=== PATIENT | male | born 1950 | race Caucasian/White ===

== ENCOUNTER 2018-07-31 14:58 | Inpatient (IN) | payer MEDICARE, OTHER ==
[~2018-07-31] VITALS: Ht 188 cm; Wt 90.7 kg
[2018-07-31 15:29] VITALS: BP 149/73; BMI 25.7
--- NOTE | 2018-07-31 16:42 | NUR ---
PATIENT ADMITTED FROM [facility] IN [place]. TRANSPORTED PATIENT BY CAR TO THE [facility]. PATIENT IS ALERT/ORIENT. DIAG: CVA, VALVE REPLACEMENT RIGHT GROIN. PERITONEL DAILYSIS PATIENT. DR KELLER MADE AWARE THAT PATIENT HAS ARRIVED.
[2018-07-31 18:25] VITALS: BP 138/71
[2018-07-31 19:00] VITALS: BP 134/67
--- NOTE | 2018-07-31 23:27 | NUR ---
RESTING IN BED. HAD PD DONE. TOLERATED WELL. NO DISTRESS NOTED.
[2018-08-01 01:44] VITALS: BP 153/78
--- NOTE | 2018-08-01 04:30 | NUR ---
RESTING IN BED WITH NO DISTRESS NOTED. PD CATH IN PLACE.
[2018-08-01 06:26] VITALS: BP 129/72
[2018-08-01 07:01] LABS: BASOPHILS 0.1 % (0-2); EOSINOPHILS 2.1 % (0-7); HEMATOCRIT 27.8 % (42.0-54.0); HEMOGLOBIN 8.2 g/dL (13.5-17.5); IMMATURE GRANULOCYTES 0.4 % (0-5); MCH 23.8 pg (26.0-34.0); MCHC 29.5 g/dL (31.0-37.0); MCV 80.8 fL (80.0-100.0); MEAN PLATELET VOLUME 9.5 fL (7.4-10.4); MONOCYTES 13.2 % (2-11); NEUTROPHILS 77.2 % (40-80); PLATELET COUNT 135 10x3/uL (130-400); RBC 3.44 10x6/uL (4.20-6.10); RDW 17.9 % (11.5-14.5); WBC 10.5 10x3/uL (4.8-10.8)
[2018-08-01 07:24] LABS: ANION GAP 20.9 mmol/L (8-16); CARBON DIOXIDE 24.2 mmol/L (21.0-32.0); CREATININE - SERUM 16.3 mg/dL (0.6-1.3); PHOSPHOROUS 8.6 mg/dL (2.5-4.9); POTASSIUM - SERUM 4.1 mmol/L (3.5-5.1)
--- NOTE | 2018-08-01 08:00 | NUR ---
PATIENT ALERT/ORIENT. CALL LIGHT WITHIN REACH. VOICES NO NEEDS AT THIS TIME. WILL CONTINUE WITH PLAN OF CARE.
[2018-08-01 08:58] VITALS: Ht 188 cm; Wt 90.7 kg
--- NOTE | 2018-08-01 10:00 | NUR ---
PATIENT DOWN IN REHAB ROOM WORKING WITH PHYSICAL THERAPIST. DENIES ANY PAIN/DISC AT THIS TIME.
[2018-08-01 11:43] VITALS: BP 140/73
--- NOTE | 2018-08-01 12:10 | NUR ---
PERITEONAL DIALYSIS STARTED ON THIS PATIENT. IN ROOM WITH PATIENT
--- NOTE | 2018-08-01 12:45 | NUR ---
PERITEONAL DIALYSIS COMPLETE. PATIENT TOLERATED WELL
--- NOTE | 2018-08-01 17:41 | NUR ---
IN ROOM VISITING. PATIENT VOICES NO NEEDS AT THIS TIME.
[2018-08-01 18:04] VITALS: BP 140/85
[2018-08-01 19:54] VITALS: BP 115/57
--- NOTE | 2018-08-01 19:55 | NUR ---
RESTING IN BED WITH RESPIRATIONS UNLABORED. RESERVE LEFT ARM FOR AV GRAPH. PERITONEAL DIALYSIS CATHETER IN PLACE. DENIES PAIN. NO DISTRESS NOTED.
[2018-08-02 00:02] VITALS: BP 120/60
--- NOTE | 2018-08-02 01:30 | NUR ---
PD DONE AT MIDNGHT AND TOLERATED WELL. RESTING IN BED WITH NO DISTRESS NOTED.
[2018-08-02 06:28] VITALS: BP 139/73
[2018-08-02 07:10] LABS: BASOPHILS 0.1 % (0-2); EOSINOPHILS 2.2 % (0-7); HEMATOCRIT 28.8 % (42.0-54.0); HEMOGLOBIN 8.5 g/dL (13.5-17.5); IMMATURE GRANULOCYTES 0.4 % (0-5); LYMPHOCYTES 7.9 % (15-50); MCH 23.5 pg (26.0-34.0); MCHC 29.5 g/dL (31.0-37.0); MCV 79.8 fL (80.0-100.0); MEAN PLATELET VOLUME 9.7 fL (7.4-10.4); MONOCYTES 13.1 % (2-11); NEUTROPHILS 76.3 % (40-80); PLATELET COUNT 136 10x3/uL (130-400); RBC 3.61 10x6/uL (4.20-6.10); RDW 17.7 % (11.5-14.5); WBC 9.8 10x3/uL (4.8-10.8)
--- NOTE | 2018-08-02 07:20 | NUR ---
RECEIVED REPORT. LYING IN BED ON RIGHT SIDE EYES CLOSED RESTING. DENIES ANY NEEDS OR PAIN. RR EVEN AND UNLABORED. CALL LIGHT WITHIN REACH, FALL PRECAUTIONS IN PLACE
--- NOTE | 2018-08-02 07:22 | NUR ---
RESTING QUIETLY IN BED. NO S/S DISTRESS. CALL LIGHT IN REACH. BED IN LOWEST POSITION.
[2018-08-02 07:33] LABS: ANION GAP 22.4 mmol/L (8-16); CALCIUM 8.7 mg/dL (8.5-10.1); CARBON DIOXIDE 24.8 mmol/L (21.0-32.0); CREATININE - SERUM 16.5 mg/dL (0.6-1.3); POTASSIUM - SERUM 4.2 mmol/L (3.5-5.1)
--- NOTE | 2018-08-02 13:15 | NUR ---
PD DRAINING STARTED
--- NOTE | 2018-08-02 13:40 | NUR ---
PD FILL STARTED, PD OUT 2199 LIGHT YELLOW CLEAR.
[2018-08-02 13:45] VITALS: BP 134/72
--- NOTE | 2018-08-02 17:31 | NUR ---
WALKING HALLS WITH . DENIES ANY NEEDS OR PAIN. RR EVEN AND UNLABORED
--- NOTE | 2018-08-02 18:35 | NUR ---
PD DRAINING STARTED
[2018-08-02 18:37] VITALS: BP 128/72
--- NOTE | 2018-08-02 18:50 | NUR ---
DRAINING PRAKASHINSHED 2299 OUT, STARTED FILL
--- NOTE | 2018-08-02 19:05 | NUR ---
PD MANCIAHED IN 1999 2.5 SOLUTION
--- NOTE | 2018-08-02 19:28 | NUR ---
AWAKE AND ALERT. RESTING IN BED. NO C/O DISCOMFORTS. NO DISTRESS NOTED. PERITONEAL CATHETER IN PLACE. CALL LIGHT IN REACH.
[2018-08-02 21:06] VITALS: BP 135/68
[2018-08-03 05:56] VITALS: BP 108/33
--- NOTE | 2018-08-03 10:36 | NUR ---
PATIENT UP IN WHEELCHAIR AFTER SHOWER AND EATING BREAKFAST. ATE 50% OF BREAKFAST. NO COMPLAINTS AT THIS TIME. CALL LIGHT WITHIN REACH. WILL CONTINUE TO MONITOR.
[2018-08-03 12:05] VITALS: BP 90/48
[2018-08-03 18:00] VITALS: BP 122/72
--- NOTE | 2018-08-03 18:00 | NUR ---
PATIENT IS READY TO GO HOME. STATES HE FEELS LIKE HEIS NOT GETTING ENOUGH SLEEP HERE AND IS CONCERNED ABOUT THE DIFFERT TYPE OF DIALYSIS THAT HE IS GETTING HERE. SPOKE WITH ELAN HIGGINS RNLUMBER PULLER. WILL WORK ON GETTING A DISCHARGE FOR TOMORROW IF PATIENT REMAINS STABLE.
--- NOTE | 2018-08-03 19:59 | NUR ---
INTRODUCED SELF TO PATIENT, PATIENT RESTING QUIETLY IN BED WITH LIGHTS OFF. RESP EVEN AND UNLABORED, ADVISED PATIENT I WOULD BE BACK IN WITH MEDS AND TO DO PD AT 0000. BED IN LOWEST POSITION, CALL LIGHT IN REACH.
--- NOTE | 2018-08-03 23:06 | NUR ---
2100 MEDS PASSED, TAKEN W/O DIFFICULTY. PATIENT DENIES ANY S/SX OF PAIN OR DISCOMFORT. BED IN LOWEST POSITION, CALL LIGHT IN REACH.
[2018-08-04 00:23] VITALS: BP 126/68
--- NOTE | 2018-08-04 06:52 | NUR ---
PD COMPLETED. TOLERATED WELL.
[2018-08-04 06:54] VITALS: BP 142/59
[2018-08-04 07:15] LABS: BASOPHILS 0 % (0-2); EOSINOPHILS 2.1 % (0-7); HEMATOCRIT 28.2 % (42.0-54.0); HEMOGLOBIN 8.4 g/dL (13.5-17.5); IMMATURE GRANULOCYTES 0.2 % (0-5); LYMPHOCYTES 14.3 % (15-50); MCH 23.9 pg (26.0-34.0); MCHC 29.8 g/dL (31.0-37.0); MCV 80.1 fL (80.0-100.0); MEAN PLATELET VOLUME 10.1 fL (7.4-10.4); MONOCYTES 13.8 % (2-11); NEUTROPHILS 69.6 % (40-80); PLATELET COUNT 127 10x3/uL (130-400); RBC 3.52 10x6/uL (4.20-6.10); RDW 17.4 % (11.5-14.5); WBC 9.2 10x3/uL (4.8-10.8)
[2018-08-04 07:34] LABS: ANION GAP 19.4 mmol/L (8-16); CALCIUM 9.1 mg/dL (8.5-10.1); CARBON DIOXIDE 26.2 mmol/L (21.0-32.0); CREATININE - SERUM 16.4 mg/dL (0.6-1.3); PHOSPHOROUS 8.9 mg/dL (2.5-4.9); POTASSIUM - SERUM 3.6 mmol/L (3.5-5.1)
--- NOTE | 2018-08-04 08:08 | NUR ---
ALERT AND ORIENTED. NO C/O PAIN. CL STEPHEN REACH.
[2018-08-04 08:11] VITALS: BP 156/80
[2018-08-04] MEDS ORDERED: ZOCOR20 MG PO (08:36)
[2018-08-04] MEDS ORDERED: PLAVIX75 MG PO (08:36)
[2018-08-04] MEDS ORDERED: TYLENOL W/CODEI1 TAB PO (08:36)
[2018-08-04] MEDS ORDERED: COZAAR50 MG PO (08:36)
[2018-08-04] MEDS ORDERED: TOPROL XL50 MG PO (08:36)
[2018-08-04] MEDS ORDERED: ZYLOPRIM100 MG PO (08:37)
[2018-08-04] MEDS ORDERED: SINGULAIR10 MG PO (08:37)
[2018-08-04] MEDS ORDERED: PROTONIX40 MG PO (08:37)
[2018-08-04] MEDS ORDERED: PROSCAR5 MG PO (08:37)
[2018-08-04] MEDS ORDERED: FOSRENOL500 MG PO (08:37)
[2018-08-04] MEDS ORDERED: Bumex PO (08:37)
[2018-08-04] MEDS ORDERED: ASPIRIN81 MG PO (08:37)
--- NOTE | 2018-08-04 10:36 | NUR ---
CASE MANAGEMENT Mr. Nielson is being discharged home today with his . He is scheduled for an EPO injection tomorrow at 1:30pm at the [facility]. Home health is scheduled with [facility] to have nursing, PT and OT. [facility] nurse visit 08/10/18 at 10:00. Follow up with Dr. Romain Drummond scheduled for 08/11/18 at 1:15pm. Lorna Funes, BALL POINTS INSPECTOR Rehab Armored Vehicle Officer
--- NOTE | 2018-08-04 10:59 | NUR ---
DC INSTRUCTIONS GIVEN. PATIENT AND VERBALIZES UNDERSTANDING. PRESCRIPTIONS SENT WITH THEM FOR ALL MEDS.PATIENT TAKEN PER WC TO CAR FOR DC WITH .
--- NOTE | 2018-08-06 08:32 | RHP ---
PATIENT: CARMELA WILLARD MEDICAL RECORD: [id number] ACCOUNT: [id number] [id number] : 48 ADMISSION DATE: 07/31/18 REHABILITATION HISTORY AND PHYSICAL EXAMINATION POST ADMISSION PHYSICIAN EXAMINATION DATE OF ADMISSION: 07/31/2018 ADMITTING DIAGNOSIS: CVA. HISTORY OF PRESENT ILLNESS: The patient is a 68-year-old gentleman with past medical history of coronary artery disease, aortic stenosis, dyslipidemia, diabetes, end-stage renal disease, which he actually does peritoneal dialysis for his chronic anemia, gout, BPH and gastroesophageal reflux disease. The patient was admitted to [facility] in [place] on 07/28/2018 and underwent a total aortic valve replacement for severe aortic stenosis. Postop, he developed some right hemianopsia. MRI of his head showed scattered acute ischemic stroke. MRA showed a posterior cerebral artery occlusion, which resulted in a left posterior cerebral artery ischemic stroke. There was complete infarct. The patient was not considered a candidate for mechanical thrombectomy. He is tolerating mechanical soft diet and regular liquids. Patient was completely independent prior to this. He has lived a sedentary lifestyle for the past 6 months due to fatigue and shortness of breath. Prior to that, he was active and enjoyed playing golf and hiking. He now requires assistance with transfers, ambulation, ADLs. He has ambulated 90 feet with min assist. Transfers and performs ADLs with some assistance at this time. He continues to have mild confusion, trouble with word finding, slow processing and problem solving, requiring some frequent verbal cues for safety awareness. He is not safe to return home at this time and would definitely benefit from inpatient rehab, which is ordered by his MD. COMORBIDITIES: In this patient include coronary artery disease, aortic stenosis, dyslipidemia, diabetes, chronic anemia, gout, BPH, gastroesophageal reflux disease. PAST MEDICAL HISTORY: Significant for aortic stenosis, gastroesophageal reflux disease, dyslipidemia, BPH, chronic anemia. PAST SURGICAL HISTORY: Includes coronary artery bypass grafting, appendectomy, scrotal mass incision, AV fistula and peritoneal dialysis. ALLERGIES: GEM INHIBITORS. CURRENT MEDICATIONS: Include Protonix 40 mg daily, metoprolol 100 mg daily. He is on gentamicin cream to apply daily, Plavix 75 mg daily, Bumex 2 mg daily, allopurinol 100 mg daily, aspirin chewable 81 mg daily. He is on peritoneal dialysis. He is on Zocor 20 mg at bedtime, Singulair 10 mg at bedtime, Cozaar 50 mg b.i.d., lanthanum chewable tablets or Fosrenol 1000 mg t.i.d. with meals. He is on Proscar 5 mg at bedtime and Tylenol #3 one tab as needed for severe pain. HABITS: No alcohol or tobacco use. FAMILY HISTORY: Noncontributory. HISTORY AND PHYSICAL [id number] CARMELA WILLARD SOCIAL HISTORY: The patient hopes to return back home and get back to his prior level of functioning. PHYSICAL EXAMINATION: VITAL SIGNS: Show a temperature of 98.6, pulse 81, respirations 20, blood pressure 129/72. GENERAL: A well-developed gentleman in no acute distress, alert upon exam. HEENT: Normocephalic and atraumatic. Mucosa moist. NECK: Supple. No lymphadenopathy. LUNGS: Clear at this time. HEART: Regular rate and rhythm. No murmurs, rubs or gallops. ABDOMEN: Benign. EXTREMITIES: No clubbing, cyanosis or edema. NEUROLOGIC: He does have noted weakness. LABORATORY DATA: White count is 10.5, H&H of 8.2 and 27.8 and platelet count is 135. Sodium is 138, potassium 4.1, BUN and creatinine of 93 and 16.3 and blood sugar is noted to be 104. ASSESSMENT: This is a 68-year-old gentleman who is admitted to rehab with a working diagnosis of a history of cerebrovascular accident secondary to aortic valve replacement. The patient has potential to make improvement. We instituted the following multidisciplinary therapies including, but not limited to physical, occupational, respiratory, speech, nutritional services, prosthetics and orthotics. Given his complex medical condition and risk for more complications, rehabilitation services cannot be provided at a low level of care such as skilled nurse facility. PLAN: 1. Admit to [facility] for intensive inpatient therapy to include the following disciplines: A. Physical therapy to improve gait, all transfer skills and bed mobility to a modified independent level. B. Occupational therapy to a modified independent level. C. Case management to assist with discharge planning and placement options. D. Nutrition to assist with nutritional needs. E. Rehabilitation nursing to assist in monitoring the patient's underlying medical conditions and to assist with any type of bowel and bladder management. 2. The patient's current medication and Medicare will be continued. 3. The patient will be placed on standard fall precautions. 4. The patient's estimated length of stay is approximately 7-10 days. 5. We will discuss this patient during care team staff meeting this week and I am going to go ahead and continue on appropriate home medications and once we get him strong enough we will get him back home. TRANSINT:[id number] Voice Confirmation ID: [id number] DOCUMENT ID: [id number] 08/04/2018 Edited for betito PERALTA. KATHRYN notes whether there has been none or any medical/functional change since admission: - No change since preadmission screen. KATHRYN attests patient continues to be appropriate for IRF: HISTORY AND PHYSICAL [id number] CARMELA WILLARD - Continues to be appropriate. MEGAN SOUTH MD at 0832 CC: [id number] DICTATION DATE: 08/01/18 1145 BUILDING SERVICES TECHNICIAN: 08/01/18 1242 DIS IN 08/04/[address] [facility] [address] [place] [address]
== END 2018-08-04 11:22 | disposition home health service (06) | DRG 56 ==
LOC: D.REHAB 14:58
PROVIDERS: Internal Medicine Nephrology; ADMIT Emergency Medicine
DX: I69.30 Unspecified sequelae of cerebral infarction (principal); N18.6 End stage renal disease; I12.0 Hypertensive chronic kidney disease with stage 5 chronic kidney disease or end stage renal disease; Z95.2 Presence of prosthetic heart valve; E11.22 Type 2 diabetes mellitus with diabetic chronic kidney disease; Z99.2 Dependence on renal dialysis; I25.10 Atherosclerotic heart disease of native coronary artery without angina pectoris; K21.9 Gastro-esophageal reflux disease without esophagitis; E78.5 Hyperlipidemia, unspecified; D53.9 Nutritional anemia, unspecified; M10.9 Gout, unspecified; N40.0 Benign prostatic hyperplasia without lower urinary tract symptoms; R41.0 Disorientation, unspecified; D63.1 Anemia in chronic kidney disease; I35.0 Nonrheumatic aortic (valve) stenosis